=== PATIENT | male | born 1990 | race African-American/Black ===

== ENCOUNTER 2020-02-14 19:07 | Emergency (ER) | payer SELFPAY ==
[~2020-02-14] VITALS: Ht 177.8 cm; Wt 80.0 kg
[2020-02-14 19:13] VITALS: BP 117/79
[2020-02-15] MEDS ORDERED: ACETAMINOPHEN 325MG TABLET PO ONE
[2020-02-15] MEDS ORDERED: ALBUTEROL 6.7GM HFA INHALER ORI ONE
[2020-02-15] MEDS ORDERED: PREDNISONE 20MG TABLET PO SCH
[2020-02-15] MEDS ORDERED: AZITHROMYCIN 500 MG TABLET PO ONE (03:00)
== END 2020-02-15 05:26 | disposition home or self-care (01) ==
LOC: EDBD 19:07 → ER 19:07
DX: J45.901 Unspecified asthma with (acute) exacerbation (principal); M25.562 Pain in left knee; Z91.81 History of falling
CPT/HCPCS: 71045; 73562; 94640; 99284; J7512